=== PATIENT | female | born 1980 | race Caucasian/White ===

== ENCOUNTER 2019-12-05 18:26 | Emergency (ER) | payer BC ==
[~2019-12-05] VITALS: Ht 154.9 cm; Wt 77.1 kg
[2019-12-05 18:30] VITALS: BP 130/90
--- NOTE | 2019-12-05 18:58 | NUR ---
LLQ/LUQ ABDOMINAL PAIN, 7/10 PAIN, SHARP SENSATION, NON-RADIATING, WALKING EXACERBATES, NOTHING ALLEVIATES X 2 DAYS. NO N/V/D, DYSURIA. PT REFERRED FROM URGENT CARE FOR FURTHER EVALUATION. PER PT OBTAINED TUMMY TUCK AND BREAST IMPLANT ON THE November. PT PRESENTS VSS,AMBULATORY,A/OX4,EUPNIC. SIDE RAIL X1, BED IN LOW POSITION, WILL CONTINUE TO MONITOR NKDA DENIES PMH
[2019-12-05 19:02] LABS: APPEARANCE,URINE CLEAR (CLEAR); BILIRUBIN,URINE NEGATIVE (NEGATIVE); BLOOD, URINE NEGATIVE (NEGATIVE); LEUKOCYTE ESTERASE ,URINE NEGATIVE (NEGATIVE); NITRITE, URINE NEGATIVE (NEGATIVE); PH,URINE 5.5 (5.0-9.0); UGLUCOSE NEGATIVE (NEGATIVE)
[2019-12-05 19:02] LABS: BASOPHILS # (AUTO) 0.1 K/uL (0.00-0.22); BASOPHILS % (AUTO) 0.5 % (0.0-2.0); EOSINOPHILS # (AUTO) 0.3 K/uL (0-0.4); EOSINOPHILS % (AUTO) 2.7 % (0.0-4.0); HEMATOCRIT 38.2 % (36-48); HEMOGLOBIN 12.8 g/dL (12.0-16.0); LYMPHOCYTES # (AUTO) 2.8 K/uL (2.5-16.5); LYMPHOCYTES % (AUTO) 24.7 % (20.5-51.1); MEAN CORPUSCULAR HEMOGLOBIN 32 pg (27-31); MEAN CORPUSCULAR HGB CONC 34 g/dL (33-37); MEAN CORPUSCULAR VOLUME 94.7 fL (80-94); MONOCYTES # (AUTO) 0.8 K/uL (0.8-1.0); MONOCYTES % (AUTO) 7.4 % (1.7-9.3); NEUTROPHILS # (AUTO) 7.2 K/uL (1.8-7.7); NEUTROPHILS % (AUTO) 64.7 % (42.2-75.2); PLATELET COUNT (AUTO) 242 K/uL (140-450); RED BLOOD CELL COUNT(AUTO) 4.04 MIL/uL (4.20-5.40); WHITE BLOOD COUNT (AUTO) 11.2 K/uL (4.8-10.8)
[2019-12-05 19:03] LABS: COLOR,URINE STRAW (YELLOW)
--- NOTE | 2019-12-05 19:12 | NUR ---
REPORT RECEIVED FROM GARRETT SALAZAR FOR CONTINUITY OF CARE
[2019-12-05 19:16] LABS: ALBUMIN 3.7 g/dL (3.4-5.0); ANION GAP 16.9 (8-16); CREATININE 0.7 mg/dL (0.6-1.3); POTASSIUM 3.9 mmol/L (3.5-5.1); TOTAL BILIRUBIN 0.3 mg/dL (0.0-1.0)
[2019-12-05] MEDS ORDERED: NACL 0.9% 1,000 ML IV SCH (19:25)
[2019-12-05] MEDS ORDERED: KETOROLAC 30 MG/ML VIAL IVP ONE (19:25)
--- NOTE | 2019-12-05 19:25 | NUR ---
ERMD AT BEDSIDE EVALUATING PT
--- NOTE | 2019-12-05 20:21 | NUR ---
PT TAKEN TO CT VIA W/C.
--- NOTE | 2019-12-05 20:39 | NUR ---
PT BACK FROM CT VIA W/C TAKEN TO BED 11.
[2019-12-05 21:57] VITALS: BP 130/90
--- NOTE | 2019-12-05 21:57 | NUR ---
Patient discharged with v/s stable. Written and verbal after care instructions given and explained. Patient alert, oriented and verbalized understanding of instructions. Ambulatory with steady gait. All questions addressed prior to discharge. ID band removed. Patient advised to follow up with PMD. Rx of NORCO and MOTRIN given. Patient educated on indication of medication including possible reaction and side effects. Opportunity to ask questions provided and answered.
== END 2019-12-05 21:57 | disposition home or self-care (01) ==
LOC: MED 18:26
DX: R10.13 Epigastric pain (principal); Z98.890 Other specified postprocedural states; Z98.82 Breast implant status
CPT/HCPCS: 36415; 74177; 80053; 81002; 81003; 81025; 83690; 85025; 96361; 96374; 99285; J1885; Q9967; J7030